=== PATIENT | female | born 1995 | race American Indian/Alaskan Native ===

== ENCOUNTER 2017-03-12 17:07 | Emergency (ER) | payer MEDICAID ==
[2017-03-12 18:00] LABS: Basophils % (Auto) 0.5 % (0.0-1.8); Eosinophils % (Auto) 1.3 % (0.0-4.3); Hematocrit 34.3 % (30.3-42.9); Hemoglobin 11.4 gm/dl (10.1-14.3); Mean Corpuscular HGB Conc 33 % (30-34); Mean Corpuscular Hemoglobin 30 pg (28-32); Mean Corpuscular Volume 89 fl (79-97); Platelet Count 244 K/mm3 (140-440); Red Blood Count 3.86 M/mm3 (3.65-5.03); Red Cell Distribution Width 13.7 % (13.2-15.2); White Blood Count 7.6 K/mm3 (4.5-11.0)
[2017-03-12 18:49] LABS: Bilirubin,Urine NEG (Negative); Blood,Urine SM (Negative); Ketones,Urine NEG (Negative); Leukocyte Esterase,Urine NEG (Negative); Nitrite,Urine NEG (Negative); Protein,Urine <15 mg/dL mg/dL (Negative); Urobilinogen,Urine < 2.0 mg/dL (<2.0); WBC,Urine < 1.0 /HPF (0.0-6.0)
--- NOTE | 2017-03-12 19:09 | Emergency Department Report ---
ED General Adult HPI - General Chief complaint: Vaginal Bleeding Stated complaint: 19 WKS PREG/BLEEDING Time Seen by Provider: 03/12/17 18:52 Source: patient Mode of arrival: Ambulatory Limitations: No Limitations - History of Present Illness Initial comments: 21 y/o F presents w/ cc of vaginal bleeding. Pt is 18 weeks, 5 days by LMP. Pt states that yesterday she had some mild abd cramps but has since resolved with no current abd pain/tenderness. Pt was otherwise in her usual state of health today, after taking a nap, pt awoke and noted vaginal bleeding, which has since resolved. Denies lightheadedness, dizziness, vomiting, abdominal pain. - Related Data Home Medications Medication Instructions Recorded Confirmed Last Taken Doxylamine/Pyridoxine HCl 1 each PO BID 03/12/17 03/12/17 Unknown [Oly Cortes 10-10 mg Tablet] Vit No.130/Iron/FA 1 each PO QDAY 03/12/17 03/12/17 03/11/17 09:00 [ Tablet] Allergies Allergy/AdvReac Type Severity Reaction Status Date / Time No Known Allergies Allergy Unverified 03/12/17 17:31 ED Review of Systems ROS: Stated complaint: 19 WKS PREG/BLEEDING Other details as noted in HPI Comment: All other systems reviewed and negative Constitutional: denies: chills, fever Eyes: denies: eye pain, eye discharge, vision change ENT: denies: ear pain, throat pain Respiratory: denies: cough, shortness of breath, wheezing Cardiovascular: denies: chest pain, palpitations Endocrine: no symptoms reported Gastrointestinal: denies: abdominal pain, nausea, diarrhea Genitourinary: denies: urgency, dysuria, discharge Musculoskeletal: denies: back pain, joint swelling, arthralgia Skin: denies: rash, lesions Neurological: denies: headache, weakness, paresthesias Psychiatric: denies: anxiety, depression Hematological/Lymphatic: denies: easy bleeding, easy bruising ED Past Medical Hx - Past Medical History Previous Medical History?: No - Surgical History Past Surgical History?: No - Social History Smoking Status: Never Smoker Substance Use Type: Alcohol - Medications Home Medications: Home Medications Medication Instructions Recorded Confirmed Last Taken Type Doxylamine/Pyridoxine HCl 1 each PO BID 03/12/17 03/12/17 Unknown History [Oly Cortes 10-10 mg Tablet] Vit No.130/Iron/FA 1 each PO QDAY 03/12/17 03/12/17 03/11/17 09:00 History [ Tablet] ED Physical Exam - General Limitations: No Limitations General appearance: alert, in no apparent distress - Head Head exam: Present: atraumatic, normocephalic - Eye Eye exam: Present: normal appearance, PERRL, EOMI - ENT ENT exam: Present: normal exam, normal orophraynx, mucous membranes moist - Neck Neck exam: Present: normal inspection, full ROM - Respiratory Respiratory exam: Present: normal lung sounds bilaterally. Absent: respiratory distress - Cardiovascular Cardiovascular Exam: Present: regular rate, normal rhythm, normal heart sounds. Absent: systolic murmur, diastolic murmur, rubs, gallop - GI/Abdominal GI/Abdominal exam: Present: soft, normal bowel sounds, other (gravid, non tender ) - External exam: Present: normal external exam (No blood, cervical os visually closed) Speculum exam: Present: other - Extremities Exam Extremities exam: Present: normal inspection - Back Exam Back exam: Present: normal inspection - Neurological Exam Neurological exam: Present: alert, oriented X3, CN II-XII intact - Psychiatric Psychiatric exam: Present: normal affect, normal mood - Skin Skin exam: Present: warm, dry, intact, normal color. Absent: rash ED Course Vital Signs 03/12/17 17:35 Temperature 98.4 F Pulse Rate 132 H Respiratory 18 Rate Blood Pressure 110/72 O2 Sat by Pulse 98 Oximetry REPEAT HR checked was 106 at 7:35p ED Medical Decision Making - Lab Data Result diagrams: 03/12/17 17:49 03/12/17 17:49 - Medical Decision Making US notes IUD with FHR of 153, exam noted visually closed os, likely threatened miscarriage. pt ordered rhogam, will have pt f/u with corporate director of pharmacy on Tuesday as pt is still < 20 weeks, will give threatened miscarriage precautions. Pt mildly tachycardic, pt did state that she was quite anxious over her , will recheck HR, although I do expect mild tachycardia with . No chest pain, dyspnea to suggest PE. After pt informed of my clinical impression, pt felt much more relieved, vitals noted resolution of tachycardia (HR 104-108) Pt given verbal discharge instructions Critical care attestation.: If time is entered above; I have spent that time in minutes in the direct care of this critically ill patient, excluding procedure time. ED Disposition Clinical Impression: Threatened Disposition: DISCHARGED TO HOME OR SELFCARE Is pt being admited?: No Does the pt Need Aspirin: No Condition: Good Instructions: Threatened Miscarriage (ED) Additional Instructions: Please follow up with your corporate director of pharmacy on Tuesday, return if you have any new concerning symptoms such as recurrence of significant vaginal bleeding, abdominal pain/cramps, or any new concerning symptoms Time of Disposition: 19:42
--- NOTE | 2017-03-12 19:22 | Ultrasound Report ---
FINAL REPORT EXAM: US OB \T\gt; = 14 WEEKS FETUS HISTORY: VAGINAL BLEEDING / TECHNIQUE: 21-year-old female with vaginal bleeding and greater than 14 weeks PRIORS: None. FINDINGS: Transvesical pelvic sonographic imaging demonstrates a single live intrauterine gestation in breech presentation. Amniotic fluid is subjectively within normal limits but not measured by the 4 quadrant method. Posterior placenta grade 0. There is no subchorionic hemorrhage identified. heart rate measures 153 beats per minute. Cervical length measures 3.1 centimeters. anatomic survey cannot be performed due to the patient's early gestational age. measurements as follows: Biparietal diameter 4.2 centimeters correlates with estimated gestational age of 18 weeks 5 days. Head circumference 15.4 centimeters correlates with estimated gestational age 18 weeks 3 days Abdominal circumference 13.6 centimeters correlates with estimated gestational age of 19 weeks 0 days Femur length 3.1 centimeters correlates with estimated gestational age of 19 weeks 3 days Per the Hadlock criteria, percentile is 53 percentile. Estimated weight is 275 grams 41 grams. Estimated due date is 08/06/2017. IMPRESSION: Single live intrauterine gestation in breech presentation at 19 weeks 0 days with estimated due date of 08/06/2017. heart rate measures 153 beats per minute. There is no subchorionic or retroplacental hemorrhage identified. Posterior placenta. Cervical length measures 3.1 centimeters.
[2017-03-12 19:31] LABS: Anion Gap 17 mmol/L; Blood Urea Nitrogen 4 mg/dL (7-17); Carbon Dioxide 21 mmol/L (22-30); Chloride 97.2 mmol/L (98-107); Glucose 105 mg/dL (65-100); Potassium 3.3 mmol/L (3.6-5.0); Sodium 132 mmol/L (137-145)
[2017-03-12 21:28] VITALS: BP 115/65
== END 2017-03-12 21:26 | disposition home or self-care (01) ==
LOC: ED 17:07
DX: O20.0 Threatened abortion (principal); Z3A.18 18 weeks gestation of pregnancy
CPT/HCPCS: 36415; 76805; 80048; 81001; 84702; 85025; 86850; 86900; 86901; 93005; 93010; 99284; J2790

== ENCOUNTER 2017-07-25 01:05 | Outpatient (CLI) | payer MEDICAID ==
[2017-07-25 01:59] VITALS: BP 116/77
[2017-07-25] MEDS ORDERED: LACTATED RINGERS 1,000 ML IV ONE (02:54)
== END 2017-07-25 04:02 | disposition home or self-care (01) ==
LOC: TRG 01:05
PROVIDERS: ATTEND Obstetrics & Gynecology
DX: O47.1 False labor at or after 37 completed weeks of gestation (principal); Z3A.38 38 weeks gestation of pregnancy
CPT/HCPCS: 59025; 96360; J7120